=== PATIENT | male | born 1950 | race Caucasian/White ===

== ENCOUNTER 2023-10-28 12:22 | Inpatient (IN) | payer OTHER, MEDICAID ==
[~2023-10-28] VITALS: Ht 175.2 cm; Wt 92.7 kg
[2023-10-28] MEDS ORDERED: Metoclopramide Hydrochloride 10 MG/2 ML AMP IV ONE (12:30)
[2023-10-28] MEDS ORDERED: SODIUM CHLORIDE 0.9% 1,000 ML IV ONE ×4 (12:30→15:10)
[2023-10-28] MEDS ORDERED: diphenhydrAMINE hydrochloride 50 MG/ML VIAL IV ONE (12:30)
[2023-10-28] MEDS ORDERED: MORPHINE Sulfate 2 MG/ML SYR IV ONE (12:30)
[2023-10-28 12:31] VITALS: BP 126/67
[2023-10-28 12:43] LABS: BASO # 0.1 10*3/uL (0.0-0.1); BASO % 0.3 % (0.0-1.0); LYMPH # 2.5 10*3/uL (1.3-4.4); LYMPH % 13.4 % (27.0-41.0); MEAN CELL VOLUME 90.6 fl (80.0-94.0); MEAN CORPUSCULAR HGB 29.5 pg (27.0-31.0); MEAN CORPUSCULAR HGB CONC 32.6 g/dl (33.0-37.0); MEAN PLATELET VOLUME 9.3 fl (9.6-12.3); MONO # 1.2 10*3/uL (0.1-1.0); MONO % 6.5 % (3.0-9.0); NEUT # 14.8 10*3/uL (2.3-7.9); NEUT % 78.8 % (47.0-73.0); PLATELET COUNT AUTOMATED 519 10*3/uL (130-400); RED BLOOD COUNT 5.52 10*6/uL (4.50-5.90); RED CELL DISTRI WIDTH 12.9 % (0-14.5); WHITE BLOOD COUNT 18.8 10*3/uL (4.8-10.8)
[2023-10-28 13:04] LABS: POTASSIUM 4.6 mmol/L (3.4-5.1)
[2023-10-28] MEDS ORDERED: INSULIN REGULAR, HUMAN 1 UNIT/0.01 ML IV ONE (14:10)
[2023-10-28] MEDS ORDERED: Ceftriaxone Sodium 1 GM/10 ML SYR IV ONE (14:40)
[2023-10-28] MEDS ORDERED: FARXIGA10 M1 PO (15:05)
[2023-10-28] MEDS ORDERED: TRULICITY4.5 MG/0.5 SQ (15:05)
[2023-10-28] MEDS ORDERED: GLIPIZIDE10 M2 PO (15:06)
[2023-10-28] MEDS ORDERED: PROPAFENONE HC150 MG PO (15:06)
[2023-10-28] MEDS ORDERED: FENOFIBRATE145 M1 PO (15:06)
[2023-10-28] MEDS ORDERED: METOPROLOL TART50 M1 PO (15:07)
[2023-10-28] MEDS ORDERED: ROSUVASTATIN CA40 MG PO (15:07)
[2023-10-28] MEDS ORDERED: COLESTIPOL HYDRO1 GM PO (15:07)
[2023-10-28] MEDS ORDERED: ELIQUIS5 M1 PO (15:07)
[2023-10-28] MEDS ORDERED: AMLODIPINE BESYL5 MG PO (15:08)
[2023-10-28] MEDS ORDERED: ZETIA10 MG PO (15:09)
[2023-10-28] MEDS ORDERED: Ondansetron Hydrochloride 4 MG/2 ML VIAL IV PRN (15:10)
[2023-10-28] MEDS ORDERED: Acetaminophen/Hydrocodone 5 MG/325 MG TABLET PO PRN (15:10)
[2023-10-28] MEDS ORDERED: ACETAMINOPHEN 325 MG TAB PO PRN (15:10)
[2023-10-28] MEDS ORDERED: ACETAMINOPHEN 650 MG SUPP R PRN (15:10)
[2023-10-28] MEDS ORDERED: BISACODYL 10 MG SUPP R PRN (15:10)
[2023-10-28] MEDS ORDERED: BISACODYL 5 MG TAB PO PRN (15:10)
[2023-10-28] MEDS ORDERED: BREYNA 160-4.10.3 GM INH (15:11)
[2023-10-28] MEDS ORDERED: VENT7GM INH (15:12)
[2023-10-28 15:37] LABS: BILIRUBIN Negative (Negative); BLOOD Negative (Negative); CLARITY Cloudy (Clear); COLOR Dark Yellow (Yellow); GLUCOSE 3+ (Negative); KETONE Trace (Negative); LEUKO ESTERASE 1+ (Negative); NITRITE Negative (Negative); SPECIFIC GRAVITY 1.025 (1.001-1.030)
[2023-10-28 15:49] LABS: BACTERIA 2+; HYALINE CAST TNTC; WBC TNTC wbc/hpf (0-5)
[2023-10-28 16:20] VITALS: BP 120/67
[2023-10-28] MEDS ORDERED: DEXTROSE 10 % IN WATER 250 ML IV PRN (17:50)
[2023-10-28 20:00] VITALS: BP 148/71
[2023-10-28] MEDS ORDERED: INSULIN LISPRO 1 UNIT/0.01 ML SQ SCH (22:00)
[2023-10-28] MEDS ORDERED: HEPARIN SODIUM 5,000 UNIT/ML VIAL SC SCH (22:00)
[2023-10-29 00:01] VITALS: BP 141/80
[2023-10-29] MEDS ORDERED: Pantoprazole Sodium 40 MG VIAL IV SCH (06:00)
[2023-10-29 06:03] LABS: BASO % 0.2 % (0.0-1.0); LYMPH # 2.5 10*3/uL (1.3-4.4); LYMPH % 13.4 % (27.0-41.0); MEAN CELL VOLUME 91.5 fl (80.0-94.0); MEAN CORPUSCULAR HGB 29.3 pg (27.0-31.0); MEAN PLATELET VOLUME 9.7 fl (9.6-12.3); MONO # 1.5 10*3/uL (0.1-1.0); MONO % 7.8 % (3.0-9.0); NEUT # 14.8 10*3/uL (2.3-7.9); NEUT % 77.9 % (47.0-73.0); PLATELET COUNT AUTOMATED 366 10*3/uL (130-400); RED BLOOD COUNT 4.81 10*6/uL (4.50-5.90); WHITE BLOOD COUNT 18.9 10*3/uL (4.8-10.8)
[2023-10-29 06:16] LABS: FREE T4 1.29 ng/dl (0.89-1.76); TOTAL PROTEIN 7.4 gm/dL (6.0-8.0)
[2023-10-29 08:00] VITALS: BP 117/93
[2023-10-29] MEDS ORDERED: SODIUM CHLORIDE 0.9% 1,000 ML IV ONE (11:20)
[2023-10-29 11:53] VITALS: BP 158/84
[2023-10-29] MEDS ORDERED: SODIUM CHLORIDE 0.9% 1,000 ML IV SCH (12:10)
[2023-10-29] MEDS ORDERED: Ceftriaxone Sodium 1 GM in SYRINGE INFUSION 10 ML IV SCH (14:00)
[2023-10-29] MEDS ORDERED: SODIUM BICARBONATE 650 MG TAB PO SCH (14:00)
[2023-10-29 15:31] VITALS: BP 144/86
[2023-10-29 20:00] VITALS: BP 155/76
[2023-10-30] VITALS (8 sets, daily range): BP systolic 113–160; BP diastolic 55–88
[2023-10-30 06:20] LABS: BASO % 0.2 % (0.0-1.0); HEMATOCRIT 39.4 % (42.0-52.0); LYMPH # 2.1 10*3/uL (1.3-4.4); LYMPH % 16.6 % (27.0-41.0); MEAN CELL VOLUME 90.2 fl (80.0-94.0); MEAN CORPUSCULAR HGB 29.5 pg (27.0-31.0); MEAN CORPUSCULAR HGB CONC 32.7 g/dl (33.0-37.0); MEAN PLATELET VOLUME 9.8 fl (9.6-12.3); MONO # 1.2 10*3/uL (0.1-1.0); MONO % 9.6 % (3.0-9.0); NEUT # 9.3 10*3/uL (2.3-7.9); NEUT % 73.1 % (47.0-73.0); PLATELET COUNT AUTOMATED 349 10*3/uL (130-400); RED BLOOD COUNT 4.37 10*6/uL (4.50-5.90); WHITE BLOOD COUNT 12.7 10*3/uL (4.8-10.8)
[2023-10-30 07:00] LABS: POTASSIUM 4.6 mmol/L (3.4-5.1)
[2023-10-30] MEDS ORDERED: Lidocaine Hydrochloride 2% 10 ML AMP IM ONE (13:19)
[2023-10-30] MEDS ORDERED: fentaNYL CITRATE 100 MCG/2 ML VIAL IV ONE (13:19)
[2023-10-30] MEDS ORDERED: PROPOFOL 200 MG/20 ML VIAL IV ONE (13:19)
[2023-10-30] MEDS ORDERED: Ceftriaxone Sodium 1 GM in SYRINGE INFUSION 10 ML IV SCH (15:30)
[2023-10-31] VITALS: BP 168/77
[2023-10-31 06:16] LABS: POTASSIUM 4.1 mmol/L (3.4-5.1)
[2023-10-31 06:18] LABS: BASO % 0.2 % (0.0-1.0); LYMPH # 3.1 10*3/uL (1.3-4.4); MEAN CELL VOLUME 87.3 fl (80.0-94.0); MEAN CORPUSCULAR HGB CONC 34.3 g/dl (33.0-37.0); MEAN PLATELET VOLUME 9.7 fl (9.6-12.3); MONO # 1.1 10*3/uL (0.1-1.0); MONO % 10.3 % (3.0-9.0); NEUT # 6.2 10*3/uL (2.3-7.9); PLATELET COUNT AUTOMATED 337 10*3/uL (130-400); RED BLOOD COUNT 4.24 10*6/uL (4.50-5.90); RED CELL DISTRI WIDTH 13.1 % (0-14.5); WHITE BLOOD COUNT 10.4 10*3/uL (4.8-10.8)
[2023-10-31 08:00] VITALS: BP 168/86
[2023-10-31] MEDS ORDERED: FENOFIBRATE 145 MG TAB PO ONE (09:30)
[2023-10-31] MEDS ORDERED: Budesonide/Formoterol Fumarate 160/4.5 inhaler INH PRN (09:35)
[2023-10-31] MEDS ORDERED: EZETIMIBE 10 MG TAB PO ONE (09:35)
[2023-10-31] MEDS ORDERED: amLODIPine besylate 5 MG TAB PO ONE (09:35)
[2023-10-31] MEDS ORDERED: Albuterol Sulfate 2.5 MG/3 ML VIAL NEB SCH (09:55)
[2023-10-31] MEDS ORDERED: BUDESONIDE 0.5 MG AMP NEB SCH (09:55)
[2023-10-31] MEDS ORDERED: APIXABAN 5 MG TAB PO SCH (10:00)
[2023-10-31] MEDS ORDERED: Rosuvastatin Calcium 10 MG TABLET PO SCH (10:00)
[2023-10-31] MEDS ORDERED: glipiZIDE 10 MG TAB PO SCH (10:00)
[2023-10-31] MEDS ORDERED: Metoprolol Tartrate 50 MG TAB PO SCH (10:00)
[2023-10-31] MEDS ORDERED: Colestipol Hydrochloride 1 GM TAB PO SCH (10:00)
[2023-10-31] MEDS ORDERED: OMNICEF300 MG PO (11:09)
[2023-10-31 12:00] VITALS: BP 170/87
[2023-10-31] MEDS ORDERED: Propafenone Hydrochloride 150 MG TAB PO SCH (14:00)
== END 2023-10-31 12:18 | disposition home or self-care (01) | DRG 871 ==
LOC: ED 12:22 → EDHOLD 14:43 → 4E 14:43
PROVIDERS: Emergency Medicine; Student in an Organized Health Care Education/Training Program; ADMIT Internal Medicine; ATTEND Internal Medicine
PROC: 0DB58ZX Excision of Esophagus, Via Natural or Artificial Opening Endoscopic, Diagnostic (ICD-10-PCS; principal; 2023-10-30)
PROC: 0DB78ZX Excision of Stomach, Pylorus, Via Natural or Artificial Opening Endoscopic, Diagnostic (ICD-10-PCS; 2023-10-30)
DX: A41.9 Sepsis, unspecified organism (principal); N17.0 Acute kidney failure with tubular necrosis; N39.0 Urinary tract infection, site not specified; E87.20 Acidosis, unspecified; E87.1 Hypo-osmolality and hyponatremia; R65.20 Severe sepsis without septic shock; N18.30 Chronic kidney disease, stage 3 unspecified; K20.90 Esophagitis, unspecified without bleeding; K44.9 Diaphragmatic hernia without obstruction or gangrene; E83.52 Hypercalcemia; K29.00 Acute gastritis without bleeding; D75.839 Thrombocytosis, unspecified; E11.65 Type 2 diabetes mellitus with hyperglycemia; I12.9 Hypertensive chronic kidney disease with stage 1 through stage 4 chronic kidney disease, or unspecified chronic kidney disease; E11.22 Type 2 diabetes mellitus with diabetic chronic kidney disease; J45.909 Unspecified asthma, uncomplicated; I48.91 Unspecified atrial fibrillation; E78.5 Hyperlipidemia, unspecified; Z91.041 Radiographic dye allergy status; Z91.013 Allergy to seafood; Z82.49 Family history of ischemic heart disease and other diseases of the circulatory system; Z82.5 Family history of asthma and other chronic lower respiratory diseases; Z79.899 Other long term (current) drug therapy; Z79.51 Long term (current) use of inhaled steroids